=== PATIENT | female | born 1950 | race Caucasian/White ===

== ENCOUNTER 2016-09-08 22:56 | Emergency (ER) | payer OTHER ==
[2016-09-08 23:04] VITALS: RESP 14; TEMP 98.1
--- NOTE | 2016-09-08 23:44 | EDPHY ---
H & P Stated Complaint: fell, struck head, hurpaul perdomo Time Seen by Provider: 09/08/16 23:22 HPI/ROS: HPI The patient presents with a fall which occurred at approximately 10:30 p.m. tonight. She was at a friend's house and was walking, missed a step and fell backwards landing on her head. She sustained a hematoma to her posterior occiput. She did not lose consciousness. She does not have any headache, vision changes, numbness or weakness of her arms or legs. She also notices that the left side of her neck is swollen and painful. She is not sure if it is getting any worse. She denies any direct trauma to her neck. REVIEW OF SYSTEMS Constitutional: No fever, no chills. Eyes: No discharge. ENT: No sore throat. Cardiovascular: No chest pain, no palpitations. Respiratory: No cough, no shortness of breath. Gastrointestinal: No abdominal pain, no vomiting. Genitourinary: No hematuria. Musculoskeletal: No back pain. Skin: No rashes. Neurological: No headache. PMHx: Healthy Soc Hx: Visiting from [place] PHYSICAL General Appearance: Alert, no distress Eyes: Pupils equal and round no pallor or injection ENT, Mouth: Mucous membranes moist Neck: Left neck is edematous and tender overlying the sternocleidomastoid and internal jugular, there is pain with range of motion Respiratory: There are no retractions, lungs are clear to auscultation Cardiovascular: Regular rate and rhythm Gastrointestinal: Abdomen is soft and non-tender, no masses, bowel sounds normal Neurological: A&O, moves all extremities Skin: Warm and dry, no rashes Musculoskeletal: Neck is supple non tender Extremities: symmetrical, full range of motion Psychiatric: Patient is oriented X 3, there is no agitation Source: Patient Exam Limitations: No limitations - Personal History Current Tetanus/Diphtheria Vaccine: Yes - Medical/Surgical History Hx Asthma: No Hx Chronic Respiratory Disease: No Hx Diabetes: No Hx Cardiac Disease: No Hx Renal Disease: No Hx Cirrhosis: No Hx Alcoholism: No Hx HIV/AIDS: No Hx Splenectomy or Spleen Trauma: No Other PMH: PMHx: denies. PSHx: melanoma removal 2008 R arm - Social History Smoking Status: Never smoked Constitutional: Initial Vital Signs Temperature (C) 36.7 C 09/08/16 22:59 Heart Rate 53 L 09/08/16 22:59 Respiratory Rate 14 09/08/16 22:59 Blood Pressure 172/87 H 09/08/16 22:59 O2 Sat (%) 97 09/08/16 22:59 O2 Delivery Mode Room Air Allergies/Adverse Reactions: No Known Allergies Allergy (Unverified 09/08/16 22:59) Home Medications: Medication Instructions Recorded NK [No Known Home Meds] 09/08/16 Medical Decision Making - Diagnostics Imaging Results: CT head without contrast demonstrates posterior occipital hematoma without any intracranial hemorrhage or skull fracture, discussed with Dr. Way of Radiology. CT neck with contrast demonstrates bleeding within the left sternocleidomastoid , no active extravasation, head of clavicle fracture which is minimally displaced, discussed with Dr. Way of Radiology. Imaging: Discussed imaging studies w/ call center analyst Radiologist, I viewed and interpreted images myself Differential Diagnosis: This is a 65-year-old female who had a mechanical fall, landing on her posterior occiput. No LOC, vomiting, vision changes, behavioral changes, neurologic deficits. She does have left neck swelling overlying the sternocleidomastoid. This is concerning for neck injury, including dissection of the internal jugular or carotid, expanding hematoma of the neck. In the emergency room, the patient was monitored with no worsening of her symptoms. She was reassessed several times. CT of neck with contrast and CT of head were checked. Patient has an unusual injury with bleeding within the sternocleidomastoid. This is likely caused by her clavicle fracture. However, there is no active extravasation and the patient has remained stable while in the ER. We will place the patient in a sling. I have encouraged her to use ice packs. I have encouraged her to sleep upright to prevent any increased edema. She is to return to the emergency room if she is worse in any way. She is visiting from out of town and I have instructed her that she needs to follow up with Orthopedics when she returns home. She is in agreement with this plan. - Data Points Laboratory Results: 09/08/16 23:51 POC Hgb 14.6 gm/dL gm/dL (12.6-16.3) POC Hct 43 % % (38-47) POC Sodium 137 mEq/L mEq/L (134-144) POC Potassium 4.0 mEq/L mEq/L (3.3-5.0) POC Chloride 99 mEq/L mEq/L (97-110) POC BUN 16 mg/dL mg/dL (7-23) POC Creatinine 0.9 mg/dL mg/dL (0.6-1.0) POC Glucose 104 mg/dL H mg/dL (70-100) Point of Care Test Results: 09/08/16 23:51 POC Sodium 137 POC Potassium 4.0 POC Chloride 99 POC BUN 16 POC Creatinine 0.9 POC Glucose 104 H Departure - Departure Disposition: Home, Routine, Self-Care Clinical Impression: Strain of sternocleidomastoid muscle Qualifiers: Encounter type: initial encounter Qualified Code(s): S16.1XXA - Strain of muscle, fascia and tendon at neck level, initial encounter Clavicle fracture, sternal end Qualifiers: Encounter type: initial encounter Fracture type: closed Fracture alignment: nondisplaced Laterality: left Qualified Code(s): S42.018A - Nondisplaced fracture of sternal end of left clavicle, initial encounter for closed fracture Condition: Good Instructions: Clavicle Fracture (ED) Additional Instructions: Your CT scan showed that you have some bleeding into your sternocleidal mastoid muscle as a result of the break in your clavicle. Please use ice on your neck. Keep the sling on as well. You can take ibuprofen or Tylenol as needed for pain. You need to return to the emergency room if you have any worsening swelling, wheezing, trouble breathing, drooling. Please follow-up when you return home with an orthopedic surgeon for your clavicle fracture. Referrals: DASHA ALANIZ [Other] - As per Instructions
[2016-09-09] MEDS ORDERED: IOPAMIDOL (ISOVUE-300) 100 ML BTL ONE (00:03)
[2016-09-09 01:16] VITALS: BP 128/80; PULSE 58; O2SAT 93
== END 2016-09-09 01:32 | disposition home or self-care (01) ==
DX: S42.018A Nondisplaced fracture of sternal end of left clavicle, initial encounter for closed fracture (principal); S16.1XXA Strain of muscle, fascia and tendon at neck level, initial encounter; W18.09XA Striking against other object with subsequent fall, initial encounter; Y92.009 Unspecified place in unspecified non-institutional (private) residence as the place of occurrence of the external cause; Y99.8 Other external cause status; Y93.01 Activity, walking, marching and hiking
CPT/HCPCS: 82947-QW; A4565; Q9967